=== PATIENT | female | born 1985 | race African-American/Black ===

== ENCOUNTER 2021-02-27 16:49 | Emergency (ER) | payer MEDICAID ==
[~2021-02-27] VITALS: Ht 175.3 cm; Wt 90.7 kg
[2021-02-27] MEDS ORDERED: IV NORMAL SALINE 500 ML BAG IV ONE (17:15)
[2021-02-27] MEDS ORDERED: ASPIRIN 325 MG TABLET PO ONE (17:15)
[2021-02-27] MEDS ORDERED: NITROGLYCERIN 0.4 MG/TAB BOTTLE SL ONE ×2 (17:15→17:24)
[2021-02-27] MEDS ORDERED: ASPIRIN 325 MG TABLET ONE (17:23)
[2021-02-27 17:32] LABS: BASOPHILS % (AUTO) 0.4 % (0.0-2.0); EOSINOPHILS # (AUTO) 0.1 K/uL (0.0-0.7); EOSINOPHILS % (AUTO) 2.8 % (0.0-7.0); HEMATOCRIT 37.3 % (31.2-41.9); HEMOGLOBIN 12.5 g/dL (10.9-14.3); LYMPHOCYTES # (AUTO) 1.3 K/uL (20.0-40.0); LYMPHOCYTES % (AUTO) 34.3 % (20.5-51.5); MEAN CORPUSCULAR HGB CONC 33 g/dL (32.3-35.6); MEAN CORPUSCULAR VOLUME 86.8 fL (75.5-95.3); MONOCYTES # (AUTO) 0.3 K/uL (2.0-10.0); MONOCYTES % (AUTO) 8.7 % (0.0-11.0); NEUTROPHILS % (AUTO) 53.8 % (38.5-71.5); PLATELET COUNT (AUTO) 187 K/uL (179-408); WHITE BLOOD COUNT (AUTO) 3.8 K/uL (3.8-11.8)
[2021-02-27 17:34] LABS: CREATININE 0.8 mg/dL (0.6-1.3); POTASSIUM 3.9 mmol/L (3.5-5.1)
[2021-02-27 17:47] LABS: BILIRUBIN,DIRECT 0.1 mg/dL (0.0-0.2); BILIRUBIN,TOTAL 0.7 mg/dL (0.2-1.0); TOTAL PROTEIN, SERUM 7.1 g/dL (6.4-8.2)
--- NOTE | 2021-02-27 18:00 | NUR ---
Patient discharged to home in stable condition. Written and verbal after care instructions given. Patient verbalizes understanding of instructions. Stressed follow up or return to ER for worsening s/s.
[2021-02-27 18:30] VITALS: BP 101/71
== END 2021-02-27 18:00 | disposition home or self-care (01) ==
LOC: ER 16:51
DX: R07.89 Other chest pain (principal)
CPT/HCPCS: 36415; 70030-TC; 71045; 85025; 85730; 93005; A4663

== ENCOUNTER 2021-11-27 14:33 | Emergency (ER) | payer MEDICAID ==
[~2021-11-27] VITALS: Ht 175.3 cm; Wt 112.5 kg
--- NOTE | 2021-11-27 15:59 | NUR ---
Patient discharged to home in stable condition. Written and verbal after care instructions given to patient. Patient verbalized and compliance understanding of instructions. Stressed follow up with primary doctor and quill skinner or return to ER for worsening s/s.
== END 2021-11-27 16:01 | disposition home or self-care (01) ==
LOC: ER 14:33
DX: M72.2 Plantar fascial fibromatosis (principal)
CPT/HCPCS: 73660; A4663

== ENCOUNTER 2021-12-12 07:56 | Emergency (ER) | payer MEDICAID ==
[~2021-12-12] VITALS: Ht 175.3 cm; Wt 103.9 kg
[2021-12-12] MEDS: IBUPROFEN 800 MG TABLET PO ONE (09:02)
--- NOTE | 2021-12-12 09:05 | NUR ---
pt verbalized sharp pain on the left elbow that radiates to the left shoulder with a pain scale of 7/10. pt denies CP, SOB, dizziness, n/v, no distress, no other complaints
[2021-12-12] MEDS ORDERED: IBUPROFEN 800 MG TABLET ONE (09:10)
--- NOTE | 2021-12-12 09:20 | NUR ---
arm sling applied on pt's left arm. PMS intact
[2021-12-12] MEDS ORDERED: IBUP-1957 PO (09:43)
[2021-12-12 09:55] VITALS: BP 110/65
== END 2021-12-12 09:56 | disposition home or self-care (01) ==
LOC: ER 07:56
DX: S50.02XA Contusion of left elbow, initial encounter (principal); W01.198A Fall on same level from slipping, tripping and stumbling with subsequent striking against other object, initial encounter; Y93.E1 Activity, personal bathing and showering; Y92.031 Bathroom in apartment as the place of occurrence of the external cause
CPT/HCPCS: 73080; A4663

== ENCOUNTER 2022-01-13 00:50 | Emergency (ER) | payer MEDICAID ==
[~2022-01-13] VITALS: Ht 175.3 cm; Wt 68.0 kg
[~2022-01-13 00:50] MED LIST: IBUP-1957 PO
--- NOTE | 2022-01-13 00:56 | NUR ---
PT AMBULATED TO ER STEADY GAIT C/O DOG BITE ON LT LEG, SKIN INTACT, NO BRUISING OR REDNESS NOTED.
--- NOTE | 2022-01-13 01:02 | NUR ---
DR. SMITH AT BEDSIDE, MSE IN PROGRESS.
--- NOTE | 2022-01-13 01:19 | NUR ---
Patient discharged to home in stable condition. Written and verbal after care instructions given. Patient verbalizes understanding of instructions. Stressed follow up or return to ER for worsening s/s. Steady gait, denies any pain/discomfort upon discharge.
[2022-01-13 01:20] VITALS: BP 112/70
== END 2022-01-13 01:20 | disposition home or self-care (01) ==
LOC: ER 00:52
DX: S80.12XA Contusion of left lower leg, initial encounter (principal); W54.0XXA Bitten by dog, initial encounter; Y92.89 Other specified places as the place of occurrence of the external cause
CPT/HCPCS: A4663

== ENCOUNTER 2022-07-20 23:27 | Emergency (ER) | payer MEDICAID ==
[~2022-07-20] VITALS: Ht 175.3 cm; Wt 69.9 kg
[2022-07-20] MEDS ORDERED: LIDOCAINE HCL 2% 20 ML VIAL ONE (23:39)
[2022-07-20] MEDS ORDERED: SODIUM BICARBONATE 4.2 % (NEUT) 5 ML VIAL ONE (23:39)
[2022-07-21] MEDS ORDERED: LIDOCAINE HCL 2% 20 ML VIAL TP ONE
[2022-07-21] MEDS ORDERED: SODIUM BICARBONATE 4.2 % (NEUT) 5 ML VIAL TP ONE
--- NOTE | 2022-07-21 | NUR ---
Dr. Booker at patient's bedside. Applied anesthetic on right big toe. Jojo
[2022-07-21] MEDS ORDERED: CEPH500T PO (00:44)
[2022-07-21] MEDS ORDERED: HYDR-4209 PO (00:44)
--- NOTE | 2022-07-21 00:54 | NUR ---
Patient discharged to home in stable condition. Written and verbal after care instructions given. Patient verbalizes understanding of instructions. Stressed follow up or return to ER for worsening s/s. walked with steady gait w/ all of belongings. Dressing was clean, dry, intact with no signs of bleeding and denies pain. Margaret/Danna
[2022-07-21] MEDS ORDERED: CEphaleXIN 500 MG CAPSULE PO ONE (01:00)
== END 2022-07-21 00:56 | disposition home or self-care (01) ==
LOC: ER 23:42
DX: S99.921A Unspecified injury of right foot, initial encounter (principal); W50.0XXA Accidental hit or strike by another person, initial encounter; Y92.89 Other specified places as the place of occurrence of the external cause; L03.031 Cellulitis of right toe; Z82.61 Family history of arthritis
CPT/HCPCS: 99284; 11730; J3490 ×2; A4663